=== PATIENT | male | born 1955 | race Caucasian/White ===

== ENCOUNTER → 2017-08-10 | Outpatient (CLI) | payer OTHER ==
[~2017-08-10] MED LIST: ACET-1600 PO; ASPI325T17 PO; ASPIRIN PO; IBUPROFEN PO; MULTIVITAMIN PO
== END ==
LOC: STAR 09:06
PROVIDERS: ATTEND Orthopaedic Surgery
DX: Z01.818 Encounter for other preprocedural examination (principal); M17.11 Unilateral primary osteoarthritis, right knee; R94.31 Abnormal electrocardiogram [ECG] [EKG]
CPT/HCPCS: 87081; 93005

== ENCOUNTER 2017-08-14 09:12 | Inpatient (IN) | payer OTHER ==
[~2017-08-14] VITALS: Ht 190.5 cm; Wt 117.0 kg
[~2017-08-14 09:12] MED LIST changes: +TRANEXAMIC ACID 100 MG/ML, 10ML ONE
[2017-08-14] MEDS ORDERED: MIDAZOLAM 1 MG/ML, 2ML ONE (11:56)
[2017-08-14] MEDS ORDERED: FENTANYL PF 250 MCG/5ML ONE (11:58)
[2017-08-14] MEDS ORDERED: BUPIVACAINE/PF 0.5% ONE (12:00)
[2017-08-14] MEDS ORDERED: ROPIvacaine/PF 0.2%, 20 ML ONE (12:00)
[2017-08-14] MEDS ORDERED: LACTATED RINGERS 1,000 ML IV SCH (13:06)
[2017-08-14] MEDS ORDERED: VANCOMYCIN PER PHARMACY MC PRN (13:30)
[2017-08-14] MEDS ORDERED: VANCOMYCIN 1,900 MG in SODIUM CHLORIDE 0.9% 250 ML IV ONE (14:00)
[2017-08-14] MEDS ORDERED: PROPOFOL 50 ML ONE ×2 (15:06→16:26)
[2017-08-14] MEDS ORDERED: SUCCINYLCHOLINE 20 MG/ML, 10ML ONE (15:09)
[2017-08-14] MEDS ORDERED: ONDANSETRON 2MG/ML, 2ML ONE ×2 (15:09→17:38)
[2017-08-14] MEDS ORDERED: DEXAMETHASONE 4 MG/ML, 1ML ONE (15:09)
[2017-08-14] MEDS ORDERED: HYDROcodone/APAP 7.5-325MG/15ML UDC PO PRN (15:30)
[2017-08-14] MEDS ORDERED: hydrALAzine 20 MG/ML, 1ML IV PRN (15:30)
[2017-08-14] MEDS ORDERED: ONDANSETRON 2MG/ML, 2ML IVPush PRN (15:30)
[2017-08-14] MEDS ORDERED: FENTANYL PF 100 MCG/2ML IV PRN (15:30)
[2017-08-14] MEDS ORDERED: LABETALOL 5MG/ML, 20ML IV PRN (15:30)
[2017-08-14] MEDS ORDERED: HYDROmorphone 1 MG/ML, 1ML IV PRN (15:30)
[2017-08-14] MEDS ORDERED: OXYcodone 5 MG/5 ML ORAL.SOL UDC PO PRN (15:30)
[2017-08-14] MEDS ORDERED: ACETAMINOPHEN 325 MG TABLET PO PRN (15:30)
[2017-08-14] MEDS ORDERED: ASPI-647 PO (17:17)
[2017-08-14] MEDS ORDERED: SENNA/DOCUSATE TABLET PO PRN (17:30)
[2017-08-14] MEDS ORDERED: BISACODYL 10 MG SUPP PR PRN (17:30)
[2017-08-14] MEDS ORDERED: MAGNESIUM HYDROXIDE 8%, 30ML UDC PO PRN (17:30)
[2017-08-14] MEDS ORDERED: PROMETHAZINE 12.5 MG SUPP PR PRN (17:30)
[2017-08-14] MEDS ORDERED: OXYcodone/APAP 5/325MG TABLET PO PRN (17:30)
[2017-08-14] MEDS ORDERED: morphine SULFATE 10 MG/ML, 1ML IV PRN (17:30)
[2017-08-14] MEDS ORDERED: ONDANSETRON 2MG/ML, 2ML IV PRN (17:30)
[2017-08-14] MEDS ORDERED: ONDANSETRON 4 MG TABLET PO PRN (17:30)
[2017-08-14] MEDS ORDERED: ACETAMINOPHEN 650 MG/20.3 ML UDC PO PRN (17:30)
[2017-08-14] MEDS ORDERED: DIPHENHYDRAMINE 50 MG CAPSULE PO PRN (17:30)
[2017-08-14] MEDS ORDERED: ACETAMINOPHEN 650 MG/20.3 ML UDC ONE (17:38)
[2017-08-14] MEDS ORDERED: OXYcodone 5 MG/5 ML ORAL.SOL UDC ONE (17:38)
[2017-08-14] MEDS ORDERED: hydrALAzine 20 MG/ML, 1ML ONE (17:55)
[2017-08-14] MEDS: OXYcodone IR 5MG TABLET PO SCH (20:37)
[2017-08-14] MEDS: ACETAMINOPHEN 500 MG TABLET PO SCH (20:37)
[2017-08-14] MEDS: DOCUSATE 100 MG CAPSULE PO SCH (20:37)
[2017-08-14 20:46] VITALS: BP 136/86
[2017-08-14] MEDS: CEFAZOLIN PMX 2GM/50ML 50 ML IVPB SCH (23:16)
[2017-08-14] MEDS: D5%-0.45% NACL 1,000 ML IV SCH (23:16)
[2017-08-15 00:23] VITALS: BP 141/86
[2017-08-15] MEDS: OXYcodone IR 5MG TABLET PO SCH ×5 (00:39→17:53)
[2017-08-15] MEDS: D5%-0.45% NACL 1,000 ML IV SCH ×2 (03:03→13:21)
[2017-08-15 06:19] VITALS: BP 161/96
[2017-08-15 08:00] VITALS: BP 176/84
[2017-08-15] MEDS: DOCUSATE 100 MG CAPSULE PO SCH (09:00)
[2017-08-15] MEDS: ACETAMINOPHEN 500 MG TABLET PO SCH ×2 (09:00→17:53)
[2017-08-15] MEDS: CEFAZOLIN PMX 2GM/50ML 50 ML IVPB SCH (09:00)
[2017-08-15 13:11] VITALS: BP 162/96
[2017-08-15] MEDS ORDERED: KETOROLAC 30 MG/1 ML IV SCH (17:30)
[2017-08-15] MEDS ORDERED: ASPIRIN 325 MG TABLET EC PO SCH (18:00)
== END 2017-08-15 18:26 | disposition still patient (30) | DRG 470 ==
LOC: ORIP 12:52 → 4NOR 18:22
PROVIDERS: ADMIT Orthopaedic Surgery; ATTEND Orthopaedic Surgery
PROC: 0SRD0J9 Replacement of Left Knee Joint with Synthetic Substitute, Cemented, Open Approach (ICD-10-PCS; principal; 2017-08-14 15:30)
DX: M17.12 Unilateral primary osteoarthritis, left knee (principal); I10 Essential (primary) hypertension
CPT/HCPCS: C1713; J0690; J1100; J2250; J2405; J2704; J2795; J3010; J3370; J3490; C1776; J0330; J0360; J7050; J7120